=== PATIENT | male | born 1945 | race Caucasian/White ===

== ENCOUNTER → 2024-05-28 08:17 | Outpatient (REF) | payer OTHER, SELFPAY | LOC: HWRAD 08:17 | PROVIDERS: ATTENDING PHYSICIAN Internal Medicine Gastroenterology; FAMILY PHYSICIAN Internal Medicine | DX: R77.2 Abnormality of alphafetoprotein (principal) | CPT/HCPCS: 76700 ==

== ENCOUNTER → 2024-06-17 15:10 | Outpatient (REF) | payer OTHER, SELFPAY | LOC: PAVMRI 15:10 | PROVIDERS: ATTENDING PHYSICIAN Physical Medicine & Rehabilitation; FAMILY PHYSICIAN Internal Medicine | DX: M25.551 Pain in right hip (principal) | CPT/HCPCS: 73721 ==

== ENCOUNTER → 2024-10-20 11:17 | Outpatient (REF) | payer OTHER, SELFPAY | LOC: RAD 11:17 | PROVIDERS: ATTENDING PHYSICIAN Specialist; FAMILY PHYSICIAN Internal Medicine | DX: R33.9 Retention of urine, unspecified (principal) | CPT/HCPCS: 76775 ==

== ENCOUNTER → 2025-05-31 11:00 | Outpatient (REF) | payer OTHER, SELFPAY | LOC: RCS 11:00 | PROVIDERS: ATTENDING PHYSICIAN Internal Medicine; FAMILY PHYSICIAN Internal Medicine | DX: I25.10 Atherosclerotic heart disease of native coronary artery without angina pectoris (principal); I50.22 Chronic systolic (congestive) heart failure | CPT/HCPCS: 93306 ==